=== PATIENT | male | born 1980 | race Hispanic/Latino ===

== ENCOUNTER 2022-03-23 16:43 | Emergency (ER) | payer OTHER, SELFPAY ==
[2022-03-23] MEDS ORDERED: ONDANSETRON 4 MG/2 ML VIAL ONE (16:56)
[2022-03-23] MEDS ORDERED: NA CHLORIDE 0.9% 1,000 ML ONE (16:56)
[2022-03-23] MEDS ORDERED: MORPHINE 4 MG/ML SYR ONE (16:56)
[2022-03-23 17:11] LABS: Absolute Lymphocytes (CBC) 2.8 K/uL (0.7-4.9); Lymphocytes % 37.4 % (15.3-44.8); MCV 85.5 fL (80-100); MPV 8.6 fL (7.6-11.3); RBC Red Blood Cell Count 5.38 M/uL (4.33-5.43)
[2022-03-23 17:29] LABS: Potassium 3.8 mmol/L (3.5-5.1)
--- NOTE | 2022-03-23 17:52 | RAD REPORT ---
EXAM DESCRIPTION: RAD - Tib Fib Right - 03/23/2022 5:37 pm CLINICAL HISTORY: Right leg pain FINDINGS: No fracture is seen
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
[2022-03-23] MEDS ORDERED: FENTANYL CITR 100 MCG/2 ML ONE (18:15)
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
[2022-03-23 19:17] VITALS: TEMP 98.7
[2022-03-23 19:19] VITALS: BP 111/79; O2SAT 96
== END 2022-03-23 18:47 | disposition home or self-care (01) ==
LOC: ER 16:43
DX: R10.10 Upper abdominal pain, unspecified (principal); M79.661 Pain in right lower leg; M54.50 Low back pain, unspecified; M54.2 Cervicalgia; V49.40XA Driver injured in collision with unspecified motor vehicles in traffic accident, initial encounter; Z88.6 Allergy status to analgesic agent
CPT/HCPCS: 85025; 80048; 36415; 82565; 70450; 72125; 71260; 74177; 73590; Q9967; J3010; J7030; J2405